=== PATIENT | female | born 1960 | race Caucasian/White ===

== ENCOUNTER 2022-09-13 11:32 | Outpatient (OUT) | payer OTHER, SELFPAY ==
[2022-09-13 12:08] LABS: Albumin Level 3.7 g/dL (3.4-5.0); Anion Gap 13.6; BUN Creatinine Ratio 21.4; Carbon Dioxide 27.5 mmol/L (21.0-32.0); Chloride 104 mmol/L (98-107); Cholesterol 157 mg/dL (<=200); Estimated GFR (African America >60 (>=60); Estimated GFR (Non-African Ame >60 (>=60); Glucose 112 mg/dL (74-106); HDL Cholesterol 78 mg/dL (40-60); Phosphorus 3.8 mg/dL (2.6-4.7); Potassium 4.1 mmol/L (3.5-5.1); Sodium 141 mmol/L (136-145); Triglycerides 79 mg/dL (<=150); VLDL CHOLESTEROL 15.8 mg/dL
[2022-09-13 17:04] LABS: Creatinine Urine Random 75.54 mg/dL (20.00-300.00); Microalbum Creatinine Ratio Ur 17.2 mg/g (0.0-29.9); Microalbumin Urine Random <1.3 mg/dL (<=30.0)
[2022-09-14 11:09] LABS: C-Peptide, Serum 2.5 ng/mL (1.1-4.4)
== END 2022-09-13 11:33 ==
PROVIDERS: PCP Family Medicine; Visit Provider Internal Medicine
DX: E11.65 Type 2 diabetes mellitus with hyperglycemia (principal); E55.9 Vitamin D deficiency, unspecified
CPT/HCPCS: 36415; 80061; 80069; 82043; 82306; 82570; 84681